=== PATIENT | female | born 1980 | race Caucasian/White ===

== ENCOUNTER 2018-07-15 11:21 | Emergency (ER) | payer OTHER ==
[2018-07-15 11:30] VITALS: BP 147/88
[2018-07-15] MEDS ORDERED: LIDOCAINE 2%-EPI 1:100000 20 ML MDV SUBQ STA (11:50)
--- NOTE | 2018-07-15 12:27 | ED Physician Documentation ---
History of Present Illness - Stated complaint Stated Complaint: FEMALE - Chief complaint Chief Complaint: General - History obtained from History obtained from: Patient - History of Present Illness Timing: How many days ago (3) Pain level max: 5 Pain level now: 4 Improved by: nothing Worsened by: nothing - Additonal information Additional information: swelling, redness to R thigh for the past few days. has had abscesses in the past. Review of Systems Constitutional: denies: Fever, Chills Nose: denies: Rhinorrhea / runny nose, Congestion GI: denies: Vomiting Skin: denies: Rash Musculoskeletal: denies: Neck pain, Back pain Neurologic: denies: Headache PD PAST MEDICAL HISTORY - Past Medical History Past Medical History: Yes Cardiovascular: None Respiratory: None Neuro: None Endocrine/Autoimmune: None GI: None ASSISTANT MANAGER QUALITY MANAGEMENT: None : None HEENT: None Psych: None Musculoskeletal: Chronic back pain Derm: None Other Past Medical History: epp - Past Surgical History Past Surgical History: Yes General: Cholecystectomy - Present Medications Home Medications: Ambulatory Orders Medication Instructions Recorded Confirmed Clindamycin HCl [Clindamycin 300MG 300 mg PO Q6H #28 capsule 07/15/18 CAP] - Allergies Allergies/Adverse Reactions: Allergies Allergy/AdvReac Type Severity Reaction Status Date / Time Penicillins Allergy Hives Verified 12/06/15 16:43 Sulfa (Sulfonamide Allergy Anaphylaxis Verified 07/15/18 11:30 Antibiotics) - Social History Does the pt smoke?: Yes Smoking Status: Current some day smoker Does the pt drink ETOH?: Yes ETOH Use: Wine, Beer, Liquor Does the pt have substance abuse?: No Substance Use and Type: Marijuana - Immunizations Immunizations are current?: No - POLST Patient has POLST: No PD ED PE NORMAL - Vitals Vital signs reviewed: Yes - General General: Alert and oriented X 3, No acute distress - Derm Derm: Warm and dry - Extremities Extremities: Other (R thigh 2x2cm indurated, fluctant area) - Neuro Neuro: Alert and oriented X 3 Results - Vitals Vitals: Vital Signs - 24 hr 07/15/18 11:27 Temperature 36.6 C Heart Rate 107 H Respiratory 20 Rate Blood Pressure 147/88 H O2 Saturation 100 Oxygen O2 Source Room air - Labs Labs: Microbiology 07/15/18 12:25 Wound Culture - Preliminary Abscess Procedures - Abscess I&D (location) R thigh Preparation: Confirmed with ultrasound, Chlorhexadine, Lidocaine 2 %, With epi Incision: Incised with scalpel, Purulent drainage, Irrigated, Packed, Culture obtained Other: Pt tolerated well, Dressing applied, Antibiotic prescribed PD MEDICAL DECISION MAKING - ED course Complexity details: considered differential, d/w patient ED course: 38-year-old female with an abscess to the right thigh. This was incised and drained. Tolerated well. Will place on antibiotics and follow-up closely with her doctor. She is allergic to penicillin and sulfa, therefore clindamycin will be used. Patient counseled regarding signs and symptoms for which I believe and urgent re-evaluation would be necessary. Patient with good understanding of and agreement to plan and is comfortable going home at this time This document was made in part using voice recognition software. While efforts are made to proofread this document, sound alike and grammatical errors may occur. Departure - Departure Disposition: 01 Home, Self Care Clinical Impression: Abscess Condition: Good Instructions: ED Abscess IandD Follow-Up: Harjit Golden DO [Primary Care Provider] - Within 3 Days (for wound check) Prescriptions: Clindamycin HCl [Clindamycin 300MG CAP] 300 mg PO Q6H #28 capsule Comments: Take all antibiotics until gone. Return if you worsen. This should improve over the next few days. Follow-up with your doctor within 2-3 days for a wound check. Discharge Date/Time: 07/15/18 12:35
== END 2018-07-15 12:35 | disposition home or self-care (01) ==
LOC: ED 11:21
DX: L02.415 Cutaneous abscess of right lower limb (principal); F17.200 Nicotine dependence, unspecified, uncomplicated
CPT/HCPCS: 10060; 87070; 87077; 87181; 87205; 99282; 99283

== ENCOUNTER 2018-10-26 10:56 | Emergency (ER) | payer OTHER ==
--- NOTE | 2018-10-26 11:46 | ED Physician Documentation ---
PD HPI BACK INJURY - Stated complaint Stated Complaint: BACK PAIN - History obtained from History obtained from: Patient - History of Present Illness Location: Right, Lower Type of injury: Other (bending and lifting bag of salt (50 lbs) and felt pain in lower back.) Where injury occurred: Work Timing - onset: Today Timing - details: Abrupt onset, Still present Quality: Pain, Spasm Improved by: No: Rest Worsened by: Moving, Palpating Associated symptoms: No: Fever, Weakness, Incontinent of stool Review of Systems Constitutional: denies: Fever, Chills, Myalgias Nose: denies: Rhinorrhea / runny nose, Congestion Throat: denies: Sore throat Cardiac: denies: Chest pain / pressure, Palpitations Respiratory: denies: Cough Musculoskeletal: reports: Back pain (right lower aspect.). denies: Neck pain Neurologic: denies: Focal weakness, Numbness PD PAST MEDICAL HISTORY - Past Medical History Cardiovascular: None Respiratory: None Neuro: None Endocrine/Autoimmune: None GI: None FABRICATION MACHINE OPERATOR: None : None HEENT: None Psych: None Musculoskeletal: Chronic back pain Derm: None - Past Surgical History Past Surgical History: Yes General: Cholecystectomy - Present Medications Home Medications: Ambulatory Orders Medication Instructions Recorded Confirmed Heart Burn Pill 10/26/18 Hydrocodone/Acetaminophen [Trinity 1 each PO Q6H PRN #20 tablet 10/26/18 5-325 Tablet] Methocarbamol [Robaxin] 500 mg PO Q6H PRN #30 tablet 10/26/18 Naproxen 500 mg PO BID #20 tablet 10/26/18 - Allergies Allergies/Adverse Reactions: Allergies Allergy/AdvReac Type Severity Reaction Status Date / Time Penicillins Allergy Hives Verified 10/26/18 11:08 Sulfa (Sulfonamide Allergy Anaphylaxis Verified 10/26/18 11:08 Antibiotics) - Social History Does the pt smoke?: Yes Smoking Status: Current some day smoker Does the pt drink ETOH?: Yes Does the pt have substance abuse?: No - Immunizations Immunizations are current?: No - POLST Patient has POLST: No PD ED PE NORMAL - Vitals Vital signs reviewed: Yes - General General: Alert and oriented X 3, Well developed/nourished, Other (appears uncomfortable with guarded ROM of the lower lumbar back. ) - Back Back: No CVA TTP - Derm Derm: Normal color, Warm and dry, No rash - Extremities Extremities: No tenderness to palpate, Normal ROM s pain, No edema, No calf tenderness / cord - Neuro Neuro: No motor deficit, No sensory deficit Results - Vitals Vitals: Vital Signs - 24 hr 10/26/18 10/26/18 11:04 12:31 Temperature 36.7 C 36.7 C Heart Rate 106 H 107 H Respiratory 18 18 Rate Blood Pressure 146/98 H 137/98 H O2 Saturation 96 99 Oxygen O2 Source Room air PD MEDICAL DECISION MAKING - ED course Complexity details: d/w patient Departure - Departure Disposition: Home, Self Care Clinical Impression: Acute lumbar myofascial strain Qualifiers: Encounter type: initial encounter Qualified Code(s): S39.012A - Strain of muscle, fascia and tendon of lower back, initial encounter Condition: Stable Record reviewed to determine appropriate education?: Yes Instructions: ED Sprain Strain Lumbar Follow-Up: Harjit Golden DO [Primary Care Provider] - Prescriptions: Hydrocodone/Acetaminophen [Trinity 5-325 Tablet] 1 each PO Q6H PRN #20 tablet PRN Reason: Pain Methocarbamol [Robaxin] 500 mg PO Q6H PRN #30 tablet PRN Reason: Spasms Naproxen 500 mg PO BID #20 tablet Comments: Heat and gentle stretching. Chiropractic treatment or massage is good. Rest for today and tomorrow with gentle motion. Naproxen twice daily anti- inflammatory. Add Robaxin muscle relaxant for spasms. Add hydrocodone 1-2 every 4 hours if needed for pain. Recheck if not improving over the next few days. Forms: Activity restrictions Discharge Date/Time: 10/26/18 12:31
[2018-10-26] MEDS: ACETAMINOPHEN 325 MG TABLET PO STA (12:12)
[2018-10-26] MEDS: IBUPROFEN 600 MG TABLET PO STA (12:12)
[2018-10-26 12:33] VITALS: BP 137/98
== END 2018-10-26 12:31 | disposition home or self-care (01) ==
LOC: ED 10:56
DX: S39.012A Strain of muscle, fascia and tendon of lower back, initial encounter (principal); X50.0XXA Overexertion from strenuous movement or load, initial encounter; Y99.0 Civilian activity done for income or pay; F17.200 Nicotine dependence, unspecified, uncomplicated
CPT/HCPCS: 1040M; 99283